=== PATIENT | female | born 1990 | race Caucasian/White ===

== ENCOUNTER 2022-01-31 20:32 | Emergency (ER) | payer MEDICAID ==
[~2022-01-31] VITALS: Ht 162.6 cm; Wt 72.7 kg
[~2022-01-31 20:32] MED LIST: AMIT25TA10 PO; SUMA100T PO
[2022-01-31] MEDS ORDERED: TRAM50TA4 PO (20:44)
[2022-01-31 22:07] VITALS: BP 125/84
== END 2022-01-31 23:50 | disposition home or self-care (01) ==
LOC: EMS 20:32
DX: F41.9 Anxiety disorder, unspecified (principal); G43.909 Migraine, unspecified, not intractable, without status migrainosus
CPT/HCPCS: 99283

== ENCOUNTER 2022-11-15 07:51 | Inpatient (IN) | payer MEDICAID ==
[~2022-11-15] VITALS: Ht 167.6 cm; Wt 81.0 kg
[~2022-11-15 07:51] MED LIST changes: +TRAM-559 PO
[2022-11-15] MEDS ORDERED: SODIUM CHLORIDE 0.9% 1,000 ML IV ONE ×2 (08:15→13:00)
[2022-11-15] MEDS ORDERED: LevETIRAcetam 1,000 MG in DEXTROSE 5%-WATER 100 ML IV ONE (08:15)
[2022-11-15 08:27] LABS: BASOPHILS % (AUTO) 0.5 % (0.0-2.0); EOSINOPHILS % (AUTO) 5.9 % (1.0-6.0); HEMATOCRIT 37.7 % (36-46); LYMPHOCYTES # (AUTO) 2.7 K/uL (1.0-4.8); LYMPHOCYTES % (AUTO) 29.7 % (22.0-44.0); MEAN CORPUSCULAR HEMOGLOBIN 25.4 pg (26.0-34.0); MEAN CORPUSCULAR HGB CONC 31.9 G/dL (31.0-37.0); MEAN CORPUSCULAR VOLUME 80 fL (80-100); MONOCYTES # (AUTO) 0.7 K/uL (0.1-1.0); MONOCYTES % (AUTO) 7.5 % (2.0-9.0); NEUTROPHILS # (AUTO) 5.2 K/uL (1.8-7.7); NEUTROPHILS % (AUTO) 56.4 % (40.0-70.0); PLATELET COUNT (AUTO) 253 K/uL (150-450); RED BLOOD CELL COUNT(AUTO) 4.74 MIL/uL (4.00-5.20); RED CELL DISTRIBUTION WIDTH 14.9 % (11.5-14.5)
[2022-11-15 08:37] LABS: ANION GAP 8 mmol/L (8-16); CALCIUM, TOTAL 9.1 mg/dL (8.8-10.5); CARBON DIOXIDE 28 mmol/L (22-29); CHLORIDE 102 mmol/L (98-107); CREATININE 0.91 mg/dL (0.60-1.30); GLOMERULAR FILTR. RATE CALC > 60 mL/min (>60); GLUCOSE,RANDOM 73 mg/dL (70-110); SODIUM SERUM 138 mmol/L (136-145); UREA NITROGEN, BLOOD 11 mg/dL (7-18)
[2022-11-15 08:41] LABS: ALANINE AMINOTRANSFERASE 35 U/L (12-78); ALBUMIN 3.5 g/dL (3.4-5.0); ALKALINE PHOSPHATASE 80 U/L (46-116); ASPARTATE AMINOTRANSFERASE 23 U/L (15-37); BILIRUBIN,TOTAL 0.3 mg/dL (0.1-1.0); TOTAL PROTEIN, SERUM 7.1 g/dL (6.4-8.2)
[2022-11-15] MEDS ORDERED: SODIUM,POTASSIUM PHOSPHATES POWDER PACKET PO ONE (09:00)
[2022-11-15 11:01] LABS: GLUCOSE,POINT OF CARE 106 MG/DL (70-110)
[2022-11-15 11:14] LABS: SALICYLATE 0.8 mg/dL (2.8-20.0)
[2022-11-15] MEDS ORDERED: RINGERS SOLUTION,LACTATED 1,000 ML IV ONE (11:15)
[2022-11-15 11:17] LABS: ACETAMINOPHEN < 2 mcg/mL (10-30)
[2022-11-15 12:18] LABS: APPEARANCE,URINE HAZY (CLEAR); BILIRUBIN,URINE NEGATIVE (NEGATIVE); GLUCOSE, URINE (UA) NEGATIVE (NEGATIVE); KETONES,URINE NEGATIVE (NEGATIVE); LEUKOCYTE ESTERASE ,URINE LARGE (NEGATIVE); NITRATE,URINE POSITIVE (NEGATIVE); OCCULT BLOOD,URINE NEGATIVE (NEGATIVE); PROTEIN,URINE TRACE mg/dL (NEGATIVE); SPECIFIC GRAVITIY, URINE 1.006 (1.003-1.030); UROBILINOGEN,URINE <=1.0 mg/dL (<=1.0)
[2022-11-15] MEDS ORDERED: CefTRIAXone 1 GM/DEXTROSE 50 ML IV ONE (12:30)
[2022-11-15 12:44] LABS: RBC,URINE None Seen /HPF (0-2)
[2022-11-15 12:45] LABS: BACTERIA,URINE Many /HPF (None Seen); SQUAMOUS EPITHELIAL CELL,UR Moderate /LPF (None Seen); WBC,URINE 51-100 /HPF (0-5)
[2022-11-15 12:58] LABS: AMPHET/METH SCREEN,URINE NEGATIVE (NEGATIVE); BARBITURATE SCREEN, URINE NEGATIVE (NEGATIVE); BENZODIAZEPINES SCREEN,URINE POSITIVE (NEGATIVE); COCAINE SCREEN,URINE NEGATIVE (NEGATIVE); METHADONE SCREEN, URINE NEGATIVE (NEGATIVE); OPIATE SCREEN,URINE NEGATIVE (NEGATIVE); PHENCYCLIDINE SCREEN,URINE NEGATIVE (NEGATIVE)
[2022-11-15] MEDS ORDERED: ONDANSETRON HCL 4 MG/2 ML VIAL IVP PRN (13:00)
[2022-11-15] MEDS ORDERED: LORazepam 2 MG/ML VIAL IVP PRN (13:00)
[2022-11-15] MEDS ORDERED: POTASSIUM CHL 10 MEQ/WATER 50 ML IV PRN (13:15)
[2022-11-15] MEDS ORDERED: POTASSIUM CHLORIDE 20 MEQ ER TABLET PO PRN (13:15)
[2022-11-15 13:31] LABS: CANNABINOID SCREEN,URINE NEGATIVE (NEGATIVE)
[2022-11-15] MEDS: ACETAMINOPHEN 325 MG TABLET PO PRN ×2 (13:37→20:01)
[2022-11-15 17:26] VITALS: BP 129/73
[2022-11-15 19:44] VITALS: BP 95/55
[2022-11-15] MEDS: LevETIRAcetam 500 MG TABLET PO SCH (20:00)
[2022-11-15] MEDS: DOCUSATE SODIUM 100 MG CAPSULE PO SCH (20:00)
[2022-11-15] MEDS: FAMOTIDINE 20 MG TABLET PO SCH (20:01)
[2022-11-15 23:27] VITALS: BP 92/56
[2022-11-16] MEDS ORDERED: SODIUM CHLORIDE 0.9% 250 ML IV ONE (00:30)
[2022-11-16] MEDS: ACETAMINOPHEN 325 MG TABLET PO PRN (00:45)
[2022-11-16 03:35] VITALS: BP 99/59
[2022-11-16 07:20] VITALS: BP 106/73
[2022-11-16] MEDS ORDERED: ACETAMINOPHEN 500 MG TABLET PO SCH (08:00)
[2022-11-16] MEDS: FAMOTIDINE 20 MG TABLET PO SCH ×2 (08:19→20:44)
[2022-11-16] MEDS: LevETIRAcetam 500 MG TABLET PO SCH ×2 (08:19→20:44)
[2022-11-16] MEDS: DOCUSATE SODIUM 100 MG CAPSULE PO SCH ×2 (08:19→20:44)
[2022-11-16 08:55] LABS: CARBON DIOXIDE 25 mmol/L (22-29); CHLORIDE 108 mmol/L (98-107); POTASSIUM 3.8 mmol/L (3.5-5.1); SODIUM SERUM 140 mmol/L (136-145)
[2022-11-16 08:56] LABS: ANION GAP 7 mmol/L (8-16); CREATININE 0.78 mg/dL (0.60-1.30); GLOMERULAR FILTR. RATE CALC > 60 mL/min (>60); GLUCOSE,RANDOM 101 mg/dL (70-110); UREA NITROGEN, BLOOD 8 mg/dL (7-18)
[2022-11-16 11:15] VITALS: BP 108/68
[2022-11-16] MEDS ORDERED: CefTRIAXone 1 GM/DEXTROSE 50 ML IV SCH (13:00)
[2022-11-16] MEDS ORDERED: ACETAMINOPHEN 325 MG TABLET PO PRN ×2 (15:30→15:45)
[2022-11-16 16:01] VITALS: BP 104/62
[2022-11-16 21:00] VITALS: BP 103/62
[2022-11-17 01:30] VITALS: BP 102/55
[2022-11-17 04:52] VITALS: BP 113/67
[2022-11-17 08:02] VITALS: BP 110/69
[2022-11-17] MEDS: LevETIRAcetam 500 MG TABLET PO SCH (08:36)
[2022-11-17] MEDS: FAMOTIDINE 20 MG TABLET PO SCH (08:36)
[2022-11-17] MEDS: DOCUSATE SODIUM 100 MG CAPSULE PO SCH (08:37)
[2022-11-17] MEDS ORDERED: CIPR250T6 PO (10:14)
[2022-11-17] MEDS ORDERED: LEVE500T20 PO (10:15)
[2022-11-17] MEDS ORDERED: SUMAtriptan SUCCINATE 100 MG TABLET PO ONE (10:30)
[2022-11-17 11:19] VITALS: BP 108/62
== END 2022-11-17 13:00 | disposition home or self-care (01) | DRG 53 ==
LOC: EMS 07:52 → 5S 14:31
PROVIDERS: ADMIT Internal Medicine; ATTEND Internal Medicine
PROC: 4A00X4Z Measurement of Central Nervous Electrical Activity, External Approach (ICD-10-PCS; principal; 2022-11-15)
DX: R56.9 Unspecified convulsions (principal); E87.6 Hypokalemia; G43.909 Migraine, unspecified, not intractable, without status migrainosus; N39.0 Urinary tract infection, site not specified; F41.9 Anxiety disorder, unspecified; Z79.899 Other long term (current) drug therapy
CPT/HCPCS: 70450; 70551; 80048; 80053; 80307; 81001; 82962; 83735; 84100; 84132; 84484; 84703; 85025; 85379; 87086; 87186; 93005; 93971; 95816; 99285; G0480; G0481; J0696; J0712; J2060; J3480; J7050; J7060; J7120; Q9967

== ENCOUNTER 2024-04-04 18:55 | Emergency (ER) | payer MEDICAID ==
[~2024-04-04] VITALS: Ht 167.6 cm; Wt 72.0 kg
[~2024-04-04 18:55] MED LIST changes: -AMIT25TA10 PO; +CIPR250T6 PO; +LEVE-71 PO; -SUMA100T PO; +SUMA100T21 PO; -TRAM-559 PO
[2024-04-04 19:36] VITALS: BP 118/91; PULSE 110; RESP 16; TEMP 98.2; O2SAT 100
== END 2024-04-04 20:01 | disposition left against medical advice (07) ==
LOC: EMS 18:55
DX: F41.9 Anxiety disorder, unspecified (principal); Z53.21 Procedure and treatment not carried out due to patient leaving prior to being seen by health care provider
CPT/HCPCS: 93005

== ENCOUNTER 2025-01-31 22:12 | Emergency (ER) | payer OTHER ==
[~2025-01-31] VITALS: Ht 160 cm; Wt 70.9 kg
[2025-01-31 22:53] VITALS: BP 104/89; PULSE 99; RESP 18; TEMP 98.1; O2SAT 99
== END 2025-02-01 01:59 | disposition left against medical advice (07) ==
LOC: EMS 22:12
DX: R22.43 Localized swelling, mass and lump, lower limb, bilateral (principal); R22.32 Localized swelling, mass and lump, left upper limb; Z53.21 Procedure and treatment not carried out due to patient leaving prior to being seen by health care provider